=== PATIENT | female | born 1955 | race Caucasian/White ===

== ENCOUNTER 2025-04-14 10:18 | Emergency (ER) | payer MEDICARE, MEDICAID ==
[2025-04-14 10:26] VITALS: PULSE 78; RESP 18; O2SAT 98
--- NOTE | 2025-04-14 10:29 | Physician Documentation ---
History of Present Illness Stated Complaint: "PEOPLE SAY I HAVE BUG IN MY HAIR" Time Seen by MD: 10:27 HPI Patient is a 69-year-old female that presents to the emergency department for evaluation of lice in her hair. Patient does not have any lice at this time she was thoroughly evaluated in the triage room. Patient has no other medical needs at this time. Review of Systems ROS As stated above in the HPI, otherwise all systems are reviewed and negative. Physical Exam Physical Exam VITALS: Reviewed and as above. GENERAL: Alert, no apparent distress. HEENT: Normocephalic, atraumatic, PERRL, EOMI, dry mucosa, no erythema SKIN: Warm and dry, no rash NEURO: Oriented x4, No motor or sensory deficit PSYCH: Normal mood and affect, no agitation Medical Decision Making Additional information obtaine: old records, other Findings Patient is a 69-year-old female that presents to the emergency department for evaluation of lice in her hair. Patient does not have any lice at this time she was thoroughly evaluated in the triage room. Patient has no other medical needs at this time. Differential Dx:Considerations: Other Departure Disposition: 01 HOME / SELF CARE / HOMELESS Impression: Primary Impression: Physically well but worried Condition: Stable Additional Instructions: Patient is a 69-year-old female that presents to the emergency department for evaluation of lice in her hair. Patient does not have any lice at this time she was thoroughly evaluated in the triage room. Patient has no other medical needs at this time. Please return to the emergency department if you have any additional concerns or symptoms. We are happy to see you at any time. Referrals: NO PRIMARY CARE PROVIDER (PCP) Education Educated: Patient Educated regarding: diagnosis, treatment, need for follow up Signature Scribe Signature: A Attestation: Scribed for Emergency,Department by JOSÉ LUIS Callaway . 04/14/25 10:29 PRISCILLA LOVELL Apr 14, 2025 10:29
== END 2025-04-14 10:42 | disposition home or self-care (01) ==
LOC: ER 10:19
DX: B85.2 Pediculosis, unspecified (principal)
CPT/HCPCS: 99282